=== PATIENT | female | born 1965 | race Hispanic/Latino ===

== ENCOUNTER 2021-02-22 05:30 | Observation (INO) | payer OTHER ==
[2021-02-21 11:40] LABS: BASOPHILS % (AUTO) 0.4 % (0.0-5.0); EOSINOPHILS % (AUTO) 1.8 % (0.0-8.0); HEMATOCRIT 44.2 % (36-48); LYMPHOCYTES % (AUTO) 39.6 % (21.0-51.0); MEAN CORPUSCULAR HEMOGLOBIN 30.4 pg (27.0-33.0); MEAN CORPUSCULAR HGB CONC 33.5 g/dL (32.0-36.0); MEAN CORPUSCULAR VOLUME 90.8 fL (79-99); MONOCYTES % (AUTO) 7.4 % (3.0-13.0); NEUTROPHILS % (AUTO) 50.5 % (40.0-77.0); PLATELET COUNT (AUTO) 235 K/uL (130-400); RED BLOOD CELL COUNT(AUTO) 4.87 MIL/uL (4.00-5.50); RED CELL DISTRIBUTION WIDTH 12.2 % (11.0-15.5); WHITE BLOOD COUNT (AUTO) 7.7 K/uL (4.8-10.8)
[~2021-02-22] VITALS: Ht 162.6 cm; Wt 106.6 kg
[2021-02-22] VITALS (22 sets, daily range): BP systolic 106–159; BP diastolic 50–77
[~2021-02-22 05:30] MED LIST: HYDR25TA PO; METO-391 PO; MULT-264 PO; NAPR-1023 PO
[2021-02-22] MEDS ORDERED: LACTATED RINGERS 1000ML 1,000 ML IV ONE (06:18)
[2021-02-22] MEDS: CEFAZOLIN SODIUM 1 GM VIAL ONE ×2 (06:41→07:35)
[2021-02-22] MEDS ORDERED: MIDAZOLAM HCL 1 MG/ML 2ML VIAL ONE (07:19)
[2021-02-22] MEDS ORDERED: FENTANYL CITRATE PF 50 MCG/1 ML 2ML VIAL ONE ×3 (07:19→09:14)
[2021-02-22] MEDS ORDERED: LIDOCAINE PF 100MG/5ML (2%) SYRINGE 5ML ONE (07:19)
[2021-02-22] MEDS ORDERED: SUCCINYLCHOLINE CHLORIDE 20 MG/ML 10 ML VIAL ONE (07:19)
[2021-02-22] MEDS ORDERED: PROPOFOL 10 MG/ML 20ML VIAL IV ONE (07:19)
[2021-02-22] MEDS ORDERED: ONDANSETRON 4MG INJ ONE (07:44)
[2021-02-22] MEDS ORDERED: DEXAMETHASONE SOD PHOSPHATE 4 MG/ML 1ML VIAL ONE (07:44)
[2021-02-22] MEDS ORDERED: PHENYLEPHRINE HCL 10 MG/ML 1ML VIAL IV ONE (07:55)
[2021-02-22] MEDS ORDERED: ESTROGENS,CONJUGATED 0.625 MG/GM 42.5 GM VAG CRM VG ONE (08:57)
[2021-02-22] MEDS ORDERED: MEPERIDINE-PF 25 MG/ML SYG ONE ×2 (09:39→09:55)
[2021-02-22] MEDS ORDERED: MEPERIDINE-PF 75 MG/ML SYG IM PRN (11:30)
[2021-02-22] MEDS ORDERED: BISACODYL 10 MG SUPP.RECT RC PRN (11:30)
[2021-02-22] MEDS ORDERED: PROMETHAZINE HCL 25 MG/ML 1ML AMPULE IM PRN ×2 (11:30)
[2021-02-22] MEDS ORDERED: IBUPROFEN 600 MG TABLET PO PRN (11:30)
[2021-02-22] MEDS ORDERED: ACETAMINOPHEN WITH CODEINE 1 TAB TAB PO PRN (11:30)
[2021-02-22] MEDS: DEXTROSE 5 %-0.45 % NACL 1,000 ML IV PRN ×2 (11:58→17:31)
[2021-02-22] MEDS: SIMETHICONE 80 MG TAB.CHEW PO PRN (21:30)
[2021-02-22] MEDS: DOCUSATE SODIUM 100 MG CAP PO PRN (21:30)
[2021-02-23 00:40] VITALS: BP 131/75
[2021-02-23] MEDS: DEXTROSE 5 %-0.45 % NACL 1,000 ML IV PRN (00:44)
[2021-02-23 04:35] VITALS: BP 148/69
[2021-02-23 05:43] LABS: MEAN CORPUSCULAR HGB CONC 34.2 g/dL (32.0-36.0); MEAN CORPUSCULAR VOLUME 90.5 fL (79-99); RED BLOOD CELL COUNT(AUTO) 4.2 MIL/uL (4.00-5.50); RED CELL DISTRIBUTION WIDTH 12.2 % (11.0-15.5); WHITE BLOOD COUNT (AUTO) 12.1 K/uL (4.8-10.8)
[2021-02-23 07:07] VITALS: BP 127/98
[2021-02-23] MEDS ORDERED: HYDROCODONE/ACETAMINOPHEN 5/325 MG TAB PO PRN (08:00)
[2021-02-23] MEDS ORDERED: ACETAMINOPHEN WITH CODEINE 1 TAB TAB PO PRN (08:00)
[2021-02-23] MEDS ORDERED: IBUPROFEN 800 MG TAB PO PRN (08:00)
[2021-02-23] MEDS: DOCUSATE SODIUM 100 MG CAP PO PRN (09:09)
[2021-02-23] MEDS: SIMETHICONE 80 MG TAB.CHEW PO PRN (09:09)
[2021-02-23 11:04] VITALS: BP 123/69
[2021-02-23] MEDS ORDERED: ACET1TAB25 PO (11:30)
[2021-02-23] MEDS ORDERED: DOCU-116 PO (11:30)
[2021-02-23] MEDS ORDERED: AMMONIA 1 EA AMP IH ONE (12:44)
== END 2021-02-23 15:55 | disposition home or self-care (01) ==
LOC: DAH 05:30 → DAHIP 05:31 → WSH 10:25
PROVIDERS: ADMIT Obstetrics & Gynecology; ATTEND Obstetrics & Gynecology
DX: N81.10 Cystocele, unspecified (principal); Z20.822 Contact with and (suspected) exposure to COVID-19; N81.6 Rectocele; N81.5 Vaginal enterocele; E78.5 Hyperlipidemia, unspecified; I10 Essential (primary) hypertension; K21.9 Gastro-esophageal reflux disease without esophagitis; E66.01 Morbid (severe) obesity due to excess calories; Z90.710 Acquired absence of both cervix and uterus; Z79.899 Other long term (current) drug therapy
CPT/HCPCS: 36415 ×2; 57282; 85025; 85027; 86850; 86900; 86901; 87635; 96360; 96361 ×2; A4215; A4216; A4221; A4222; A4223; A4344; A4351; A4510; A4600; A4606; A4657; A4663; A6260; C9803; G0378 ×30; J0330; J0690; J1100; J2001; J2175 ×2; J2250; J2370; J2405; J2704; J3010 ×3; J3490; J7120 ×2

== ENCOUNTER 2023-12-21 16:10 | Observation (INO) | payer OTHER ==
[~2023-12-21] VITALS: Ht 160 cm; Wt 94.8 kg
[~2023-12-21 16:10] MED LIST changes: +ACET-2079 PO; +DOCU-116 PO
[2023-12-21 16:42] LABS: BASOPHILS # (AUTO) 0.03 K/uL (0.00-0.20); BASOPHILS % (AUTO) 0.4 % (0.0-5.0); EOSINOPHILS # (AUTO) 0.19 K/uL (0.00-0.70); EOSINOPHILS % (AUTO) 2.4 % (0.0-8.0); HEMATOCRIT 45.2 % (36-48); IMMATURE GRANULOCYTE ABSOLUTE 0.02 K/uL (0-1); LYMPHOCYTES # (AUTO) 3.7 K/uL (1.0-4.8); LYMPHOCYTES % (AUTO) 46.4 % (21.0-51.0); MEAN CORPUSCULAR HEMOGLOBIN 30.7 pg (27.0-33.0); MEAN CORPUSCULAR HGB CONC 34.1 g/dL (32.0-36.0); MEAN CORPUSCULAR VOLUME 90.2 fL (79-99); MONOCYTES # (AUTO) 0.7 K/uL (0.1-1.0); MONOCYTES % (AUTO) 9.1 % (3.0-13.0); NEUTROPHILS # (AUTO) 3.3 K/uL (1.8-7.7); NEUTROPHILS % (AUTO) 41.4 % (40.0-77.0); PLATELET COUNT (AUTO) 256 K/uL (130-400); RED BLOOD CELL COUNT(AUTO) 5.01 MIL/uL (4.00-5.50); RED CELL DISTRIBUTION WIDTH 13.3 % (11.0-15.5)
[2023-12-21 16:52] LABS: CREATININE 0.9 mg/dL (0.5-1.0); POTASSIUM 3.9 mmol/L (3.5-5.1)
[2023-12-21] MEDS: FUROSEMIDE 40MG VIAL IV ONE (18:35)
[2023-12-21] MEDS ORDERED: MORPHINE 2 MG SYG IVP PRN (20:30)
[2023-12-21] MEDS ORDERED: ONDANSETRON 4MG INJ IVP PRN (20:30)
[2023-12-21 22:14] VITALS: O2SAT 97
[2023-12-21 22:15] VITALS: BP 130/97; PULSE 100; RESP 20
[2023-12-22] VITALS (8 sets, daily range): BP systolic 109–138; BP diastolic 64–86; PULSE 77–97; RESP 16–20; TEMP 98.1; O2SAT 94–95
[2023-12-22 05:16] LABS: BASOPHILS # (AUTO) 0.05 K/uL (0.00-0.20); BASOPHILS % (AUTO) 0.7 % (0.0-5.0); EOSINOPHILS # (AUTO) 0.24 K/uL (0.00-0.70); EOSINOPHILS % (AUTO) 3.1 % (0.0-8.0); HEMATOCRIT 44.3 % (36-48); IMMATURE GRANULOCYTE ABSOLUTE 0.01 K/uL (0-1); LYMPHOCYTES # (AUTO) 3.4 K/uL (1.0-4.8); LYMPHOCYTES % (AUTO) 44.2 % (21.0-51.0); MEAN CORPUSCULAR HEMOGLOBIN 31.2 pg (27.0-33.0); MEAN CORPUSCULAR HGB CONC 34.3 g/dL (32.0-36.0); MONOCYTES # (AUTO) 0.8 K/uL (0.1-1.0); MONOCYTES % (AUTO) 10.1 % (3.0-13.0); NEUTROPHILS # (AUTO) 3.2 K/uL (1.8-7.7); NEUTROPHILS % (AUTO) 41.8 % (40.0-77.0); PLATELET COUNT (AUTO) 238 K/uL (130-400); RED BLOOD CELL COUNT(AUTO) 4.87 MIL/uL (4.00-5.50); RED CELL DISTRIBUTION WIDTH 13.2 % (11.0-15.5); WHITE BLOOD COUNT (AUTO) 7.7 K/uL (4.8-10.8)
[2023-12-22 05:25] LABS: HEMOGLOBIN A1C 5.8 % (4.0-6.0)
[2023-12-22 05:35] LABS: CREATININE 0.9 mg/dL (0.5-1.0); MAGNESIUM 1.7 mg/dL (1.80-2.40); POTASSIUM 3.9 mmol/L (3.5-5.1)
[2023-12-22] MEDS ORDERED: METO-408 PO (09:23)
[2023-12-22] MEDS ORDERED: CALC-866 PO (09:33)
[2023-12-22] MEDS ORDERED: BACI1CAP14 PO (09:33)
[2023-12-22] MEDS ORDERED: LORA10TA7 PO (09:33)
[2023-12-22] MEDS ORDERED: BLAC40CA PO (09:33)
[2023-12-22] MEDS ORDERED: MECO10005 PO (09:33)
[2023-12-22] MEDS ORDERED: MULT-1367 PO (09:33)
[2023-12-22] MEDS ORDERED: OMEP20TA20 PO (09:33)
[2023-12-22] MEDS: METOPROLOL SUCCINATE 25 MG TAB.SR.24H PO SCH (09:38)
[2023-12-22] MEDS: ASPIRIN 81 MG EC TAB PO SCH (09:38)
[2023-12-22] MEDS: NITROGLYCERIN 0.4 MG SL TAB SL PRN (09:39)
[2023-12-22] MEDS: ENOXAPARIN SODIUM 40 MG/0.4 ML SYRINGE SQ SCH (09:40)
[2023-12-22] MEDS: ACETAMINOPHEN 325 MG TAB PO PRN (16:21)
[2023-12-22] MEDS: INSULIN LISPRO 100 UNIT/ML 3ML SQ PRN (20:33)
[2023-12-23] VITALS: BP 137/53; PULSE 85; RESP 19
[2023-12-23 04:00] VITALS: BP 146/64; PULSE 96; RESP 19
[2023-12-23 05:26] LABS: HEMATOCRIT 44.2 % (36-48); MEAN CORPUSCULAR HEMOGLOBIN 31.4 pg (27.0-33.0); MEAN CORPUSCULAR HGB CONC 34.2 g/dL (32.0-36.0); MEAN CORPUSCULAR VOLUME 91.9 fL (79-99); RED BLOOD CELL COUNT(AUTO) 4.81 MIL/uL (4.00-5.50); RED CELL DISTRIBUTION WIDTH 12.9 % (11.0-15.5); WHITE BLOOD COUNT (AUTO) 6.1 K/uL (4.8-10.8)
[2023-12-23 05:39] LABS: CREATININE 0.8 mg/dL (0.5-1.0); MAGNESIUM 1.7 mg/dL (1.80-2.40); POTASSIUM 3.7 mmol/L (3.5-5.1)
[2023-12-23 08:10] VITALS: O2SAT 97
[2023-12-23 08:30] VITALS: BP 127/73; PULSE 70; RESP 16
[2023-12-23] MEDS: MULTIVITAMIN TABLET PO SCH (08:51)
[2023-12-23] MEDS: INULIN PO SCH (08:51)
[2023-12-23] MEDS: BACILLUS COAGULANS PO SCH (08:51)
[2023-12-23] MEDS: Cholecalciferol (Vitamin D3) 125 MCG PO SCH (08:51)
[2023-12-23] MEDS: LORATADINE 10 MG TABLET PO SCH (08:51)
[2023-12-23] MEDS: PANTOPRAZOLE 40 MG TAB DR PO SCH (08:51)
[2023-12-23] MEDS: BLACK COHOSH 40 MG PO SCH (08:51)
[2023-12-23] MEDS: CYANOCOBALAMIN (VITAMIN B-12) 1,000 MCG TABLET PO SCH (08:51)
[2023-12-23] MEDS ORDERED: METOPROLOL SUCCINATE 25 MG TAB.SR.24H PO SCH (09:00)
[2023-12-23] MEDS: REGADENOSON 0.4 MG/5 ML PF SYG IVP SCH (09:11)
[2023-12-23 12:00] VITALS: BP 141/85; PULSE 91; RESP 19
== END 2023-12-23 16:30 | disposition home or self-care (01) ==
LOC: EDH 16:10 → INTOOBSV 20:21 → EDHIP 20:21 → 3BH 22:08
PROVIDERS: ADMIT Internal Medicine Infectious Disease; ATTEND Internal Medicine Infectious Disease
DX: I20.0 Unstable angina (principal); R07.89 Other chest pain; E11.9 Type 2 diabetes mellitus without complications; I11.9 Hypertensive heart disease without heart failure; F19.90 Other psychoactive substance use, unspecified, uncomplicated; B02.9 Zoster without complications; R11.0 Nausea; E66.01 Morbid (severe) obesity due to excess calories; Z86.19 Personal history of other infectious and parasitic diseases; Z90.710 Acquired absence of both cervix and uterus; Z79.899 Other long term (current) drug therapy; Z98.890 Other specified postprocedural states; Z68.37 Body mass index [BMI] 37.0-37.9, adult
CPT/HCPCS: 99285; 84484 ×5; 80048 ×3; 83880; 85025 ×2; 85378; 83605; 36415 ×3; 71045; 96374; 93005; 96372; 83036; 83735 ×2; 82948 ×6; 93306; 93356; 85027; 93017; 78452; J1940; J1650; J2785; G0378 ×2; A9500 ×2

== ENCOUNTER → 2024-03-10 | Outpatient (CLI) | payer OTHER ==
[~2024-03-10] MED LIST changes: -ACET-2079 PO; +BACI1CAP14 PO; +BLAC40CA PO; +CALC-866 PO; -DOCU-116 PO; -HYDR25TA PO; +LORA10TA7 PO; +MECO10005 PO; -METO-391 PO; +METO-408 PO; +MULT-1367 PO; -MULT-264 PO; -NAPR-1023 PO; +OMEP20TA20 PO
== END | disposition home or self-care (01) ==
LOC: RAH 08:55
PROVIDERS: ATTEND Internal Medicine Gastroenterology
DX: K21.9 Gastro-esophageal reflux disease without esophagitis (principal); K44.9 Diaphragmatic hernia without obstruction or gangrene; R10.12 Left upper quadrant pain
CPT/HCPCS: 74240